=== PATIENT | male | born 1975 | race Caucasian/White ===

== ENCOUNTER 2024-05-28 07:45 | Inpatient (IN) | payer OTHER ==
[~2024-05-28] VITALS: Ht 175.3 cm; Wt 99.8 kg
[2024-05-28] MEDS ORDERED: ZESTRIL2.5 MG PO (07:55)
[2024-05-28] MEDS ORDERED: GRALISE600 MG PO (07:55)
--- NOTE | 2024-05-28 07:57 | NUR ---
PACIENTE ALERTA Y ORIENTADO X3. REFIERE TOS SECA DESDE HACEN VARIOS LÓPEZ Y FIEBRE. SE ESTIMAN VITALES Y SE UBICA.
[2024-05-28] MEDS ORDERED: cloNIDine HCL 0.2 MG TABLET PO ONE ×2 (09:15→18:30)
[2024-05-28] MEDS ORDERED: LEVALBUTEROL HCL 0.63 MG/3 ML SOLUTION IH ONE (09:15)
[2024-05-28] MEDS ORDERED: IPRATROPIUM BROMIDE 0.5 MG/2.5 ML AMPUL.NEB IH ONE (09:15)
--- NOTE | 2024-05-28 09:34 | NUR ---
RN SAMUELS ORIENTA A PTE SOBRE TX MEDICO Y EL MISMO REFIERE ENTENDER. SE RECOLECTAN Y SE ADMINISTRAN MEDICAMENTOS JERMAINE ORDEN MEDICA BAJO MEDIDAS ASEPTICAS. SE COLOCA H/L EN JOHNATHANO RENE.
[2024-05-28 09:57] LABS: HEMATOCRIT 45.8 % (39.0-48.0); HEMOGLOBIN 16.3 g/dL (13-16.00); MEAN CELL VOLUME 91.3 fL (80.0-100.00); MEAN CORPUSCULAR HEMOGLOBIN 32.4 pg (27.00-32.0); MEAN CORPUSCULAR HGB CONC 35.5 g/dl (32.0-36.0); PLATELET COUNT 146 K/uL (150-450); RED BLOOD COUNT 5.02 M/uL (4.00-6.00); RED CELL DISTRIBUTION WIDTH 12.9 % (11.5-14.5)
[2024-05-28 10:13] LABS: ABG PH 7.441 (7.35-7.45); ABG PO2 74.5 mmHg (80-100); ABG pCO2 37.1 mmHg (35-45); BASE EXCESS 0.9 mmol/l; BICARBONATE 24.7 mmol/l (23-25); SaO2 95.4 %; Tco2 25.8 mmol/l
[2024-05-28 10:14] LABS: allen test SATISFACTORY; o2 21 %; puncture site RADIAL RIGHT
[2024-05-28 10:24] LABS: ALBUMIN 3.8 gm/dL (3.4-5.0); BILIRUBIN TOTAL 0.49 mg/dL (0.3-1.2); CALCIUM 9.4 mg/dL (8.5-10.1); CREATININE SERUM 0.94 mg/dL (0.70-1.30); GFR 86.02; GLOBULINA 4.6 G/DL (2.4-3.5); POTASSIUM 4.03 mEq/L (3.5-5.1); TOTAL PROTEIN 8.4 gm/dL (6.4-8.2)
[2024-05-28] MEDS ORDERED: METHYLPREDNISOLONE SOD SUCC 125 MG VIAL IV ONE (12:30)
[2024-05-28] MEDS ORDERED: IPRATROPIUM BROMIDE 0.5 MG/2.5 ML AMPUL.NEB IH SCH (12:30)
[2024-05-28] MEDS ORDERED: LEVALBUTEROL HCL 0.63 MG/3 ML SOLUTION IH SCH (12:30)
[2024-05-28] MEDS ORDERED: LABETALOL HCL 100 MG/20 ML ML IV PUSH ONE (15:15)
[2024-05-28] MEDS ORDERED: LABETALOL HCL 20MG/4ML SYRINGE IV ONE (17:15)
[2024-05-28] MEDS ORDERED: IPRATROPIUM/ALBUTEROL SULFATE 3 ML AMPUL.NEB IH SCH (18:30)
[2024-05-28] MEDS ORDERED: 0.9 % SODIUM CHLORIDE 1,000 ML IV SCH (22:15)
[2024-05-28] MEDS ORDERED: AZITHROMYCIN 500 MG in DEXTROSE 5 % IN WATER 250 ML IV SCH (22:17)
[2024-05-28] MEDS ORDERED: GUAIFEN/DEXTROMETHORPHAN/PE 10 ML BLIST.PACK PO SCH (22:22)
[2024-05-28] MEDS ORDERED: ACETAMINOPHEN 500 MG GEL..CAP PO PRN (22:30)
[2024-05-28] MEDS ORDERED: hydrALAZINE HCL 20 MG VIAL IV PRN (22:45)
[2024-05-29 00:49] VITALS: BP 142/84; O2SAT 98
[2024-05-29] MEDS ORDERED: METHYLPREDNISOLONE SOD SUCC 40 MG VIAL IV SCH (01:00)
[2024-05-29] MEDS ORDERED: IPRATROPIUM/ALBUTEROL SULFATE 3 ML AMPUL.NEB IH SCH (01:00)
[2024-05-29 03:59] VITALS: BP 160/80; O2SAT 98
[2024-05-29 07:11] LABS: INR 1.05; PROTHROMBIN TIME 11.4 SECONDS (9.0-11.5)
[2024-05-29 07:15] LABS: D DIMER 0.63 MG/L; PARTIAL THROMBOPLASTIN TIME 30.2 SECONDS (22.0-34.0)
[2024-05-29 08:50] VITALS: BP 172/86; O2SAT 97
[2024-05-29] MEDS ORDERED: ENOXAPARIN SODIUM 40 MG/0.4 ML SYRINGE SUBCUTANEO SCH (09:00)
[2024-05-29] MEDS ORDERED: IRBESARTAN 150 MG TABLET PO SCH ×2 (09:00→17:00)
[2024-05-29] MEDS ORDERED: FAMOTIDINE/PF 20 MG in 0.9 % SODIUM CHLORIDE 8 ML IV PUSH SCH (09:00)
[2024-05-29] MEDS ORDERED: LEVALBUTEROL HCL 1.25 MG/3 ML SOLUTION IH NR (10:30)
[2024-05-29] MEDS ORDERED: NIFEDIPINE 30 MG TAB.SA.OSM PO NR (13:00)
[2024-05-29] MEDS ORDERED: LEVALBUTEROL HCL 1.25 MG/3 ML SOLUTION IH SCH (13:00)
[2024-05-29] MEDS ORDERED: AZITHROMYCIN 500 MG VIAL IV SCH (17:00)
[2024-05-29] MEDS ORDERED: levoFLOXacin IN DEXTROSE 5 % 150 ML IV SCH (17:00)
[2024-05-29] MEDS ORDERED: MONTELUKAST SODIUM 10 MG TABLET PO SCH (17:00)
[2024-05-29] MEDS ORDERED: IPRATROPIUM BROMIDE 0.5 MG/2.5 ML AMPUL.NEB IH SCH (17:00)
[2024-05-29 17:35] VITALS: O2SAT 94
[2024-05-29 17:53] VITALS: BP 160/90
[2024-05-29 21:33] VITALS: O2SAT 95
[2024-05-30] VITALS (7 sets, daily range): BP systolic 128–142; BP diastolic 78–80; O2SAT 90–97
[2024-05-30] MEDS ORDERED: NIFEDIPINE 30 MG TAB.SA.OSM PO SCH (09:00)
[2024-05-30] MEDS ORDERED: NIFEDIPINE 30 MG TAB.SA.OSM PO STA (09:52)
[2024-05-30] MEDS ORDERED: hydrALAZINE HCL 25 MG TABLET PO NR (13:00)
[2024-05-30 16:18] LABS: PH,URINE 5.5 (5.0-8.0); URINE APPEARANCE Clear; URINE BACTERIA 12.2 uL (0.0-1933); URINE BILIRRUBIN Negative (NEGATIVE); URINE BLOOD Negative; URINE COLOR Yellow; URINE EPITHELIAL CELLS 1.8 uL (0.0-38.8); URINE GLUCOSE Negative (NEGATIVE); URINE KETONE Negative (NEGATIVE); URINE LEUKOCYTE Negative; URINE NITRATE Negative; URINE PROTEIN 30 (NEGATIVE); URINE RBC 4.8 uL (0.0-20.8)
[2024-05-30 16:27] LABS: URINE CAST 0.29 uL (0.0-1.40)
[2024-05-30] MEDS ORDERED: hydrALAZINE HCL 25 MG TABLET PO SCH (21:00)
[2024-05-31 01:40] VITALS: BP 141/90; O2SAT 94
[2024-05-31 02:00] VITALS: O2SAT 93
[2024-05-31 07:47] LABS: ALBUMIN 3.5 gm/dL (3.4-5.0); BILIRUBIN TOTAL 0.39 mg/dL (0.3-1.2); CALCIUM 8.8 mg/dL (8.5-10.1); CREATININE SERUM 0.81 mg/dL (0.70-1.30); GFR 102.14; MAGNESIUM 2.1 mg/dL (1.8-2.4); PHOSPHOROUS 3.8 mg/dL (2.5-4.9); POTASSIUM 3.6 mEq/L (3.5-5.1); TOTAL PROTEIN 7.5 gm/dL (6.4-8.2)
[2024-05-31] MEDS ORDERED: NIFEDIPINE 60 MG TAB.SA.OSM PO SCH (09:00)
[2024-05-31 09:25] VITALS: BP 147/95; O2SAT 96
[2024-05-31 09:27] LABS: HEMATOCRIT 46.2 % (39.0-48.0); HEMOGLOBIN 15.9 g/dL (13-16.00); MEAN CELL VOLUME 92.9 fL (80.0-100.00); MEAN CORPUSCULAR HGB CONC 34.4 g/dl (32.0-36.0); PLATELET COUNT 198 K/uL (150-450); RED BLOOD COUNT 4.98 M/uL (4.00-6.00); RED CELL DISTRIBUTION WIDTH 12.6 % (11.5-14.5)
[2024-05-31 09:44] VITALS: O2SAT 95
[2024-05-31 12:20] VITALS: O2SAT 93
[2024-05-31] MEDS ORDERED: MEDROLPACK PO (14:29)
[2024-05-31] MEDS ORDERED: INTESTINEX680 M1 PO (14:30)
[2024-05-31] MEDS ORDERED: LEVOFLOXACIN750 MG PO (14:30)
[2024-05-31] MEDS ORDERED: AVAPRO150 MG PO (14:31)
[2024-05-31] MEDS ORDERED: XOPENEX CO1.25 MG/0. IH (14:31)
[2024-05-31] MEDS ORDERED: NIFEDIPINE ER60 MG PO (14:32)
[2024-05-31] MEDS ORDERED: MONTELUKAST SOD10 MG PO (14:32)
[2024-05-31] MEDS ORDERED: HYDRALAZINE HCL25 MG PO (14:32)
[2024-05-31] MEDS ORDERED: PROTONIX20 MG PO (14:32)
[2024-05-31] MEDS ORDERED: SYMBICORT 16010.2 GM IH (14:34)
[2024-05-31] MEDS ORDERED: METHYLPREDNISOLONE SOD SUCC 40 MG VIAL IV SCH (21:00)
== END 2024-05-31 15:04 | disposition home or self-care (01) | DRG 192 ==
LOC: ER 07:45 → MEDI 22:25
PROVIDERS: Emergency Medicine; General Practice; ADMIT Internal Medicine; ATTEND Internal Medicine
PROC: BB24ZZZ Computerized Tomography (CT Scan) of Bilateral Lungs (ICD-10-PCS; principal; 2024-05-28)
PROC: B246ZZZ Ultrasonography of Right and Left Heart (ICD-10-PCS; 2024-05-28)
PROC: 3E0F7GC Introduction of Other Therapeutic Substance into Respiratory Tract, Via Natural or Artificial Opening (ICD-10-PCS; 2024-05-29)
PROC: 4A12X4Z Monitoring of Cardiac Electrical Activity, External Approach (ICD-10-PCS; 2024-05-29)
DX: J44.1 Chronic obstructive pulmonary disease with (acute) exacerbation (principal); J22 Unspecified acute lower respiratory infection; I16.0 Hypertensive urgency; Z72.0 Tobacco use; R09.02 Hypoxemia; I10 Essential (primary) hypertension

== ENCOUNTER 2025-06-18 14:36 | Inpatient (IN) | payer OTHER ==
[~2025-06-18] VITALS: Ht 175.3 cm; Wt 86.2 kg
[~2025-06-18 14:36] MED LIST: AVAPRO150 MG PO; GRALISE600 MG PO; HYDRALAZINE HCL25 MG PO; INTESTINEX680 M1 PO; LEVOFLOXACIN750 MG PO; MEDROLPACK PO; MONTELUKAST SOD10 MG PO; NIFEDIPINE ER60 MG PO; PROTONIX20 MG PO; SYMBICORT 16010.2 GM IH; XOPENEX CO1.25 MG/0. IH; ZESTRIL2.5 MG PO
[2025-06-18] MEDS ORDERED: COZAAR25 MG PO (15:42)
[2025-06-18] MEDS ORDERED: KEPPRA500 MG PO (15:43)
[2025-06-18] MEDS ORDERED: LORazepam 2 MG/ML VIAL IV STA (15:54)
[2025-06-18] MEDS ORDERED: 0.9 % SODIUM CHLORIDE 1,000 ML IV STA ×2 (15:55→21:41)
[2025-06-18 16:44] LABS: BASO % 1.9 % (0.1-1.2); EOS # 0.01 (0.04-0.54); EOS % 0.3 % (0.7-7.0); LYMPH # 0.32 (1.18-3.74); LYMPH % 9.9 % (19.3-53.1); MEAN PLATELET VOLUME 9.30 fl (9.4-12.4); MONO # 0.72 (0.24-0.82); NEUT # 2.13 (1.56-6.13); NEUT % 65.7 % (34.0-71.1); RED CELL DISTRIBUTION WIDTH 11.4 % (11.6-14.4)
[2025-06-18 17:01] LABS: INR 1.17
[2025-06-18 17:14] LABS: MONO % 22.2 % (4.7-12.5)
[2025-06-18 17:15] LABS: BASOPHIL MAN 2.0 %; ERYTHROCYTE SEDIMENTATION RATE 19 mm/hr (0-15); LYMPHOCYTE MAN 13.0 %; MONOCYTE MAN 16.0 %; NEUTROPHILS MAN 69.0 %
[2025-06-18 17:19] LABS: COVID-19 AG NEGATIVE (NEGATIVE)
[2025-06-18 17:21] LABS: ALT/SGPT 106 U/L (12-78); AST/SGOT 142 U/L (15-37); BILIRUBIN TOTAL 1.80 mg/dL (0.3-1.2); BUN CREA RATIO 10 (7.0-25.0); CREATININE SERUM 0.70 mg/dL (0.70-1.30); GFR 120.36; GLOBULINA 4.5 G/DL (2.4-3.5); GLUCOSE FASTING 123 mg/dL (65-100); OSMOLALITY SERUM 277 MOSM/KG (275-295)
[2025-06-18 18:08] LABS: URINE APPEARANCE Clear; URINE BILIRRUBIN Negative (NEGATIVE); URINE BLOOD Negative; URINE COLOR Yellow; URINE GLUCOSE Negative (NEGATIVE); URINE KETONE Trace (NEGATIVE); URINE LEUKOCYTE Trace; URINE NITRATE Negative; URINE PROTEIN 30 (NEGATIVE); URINE UROBILINOGEN 1.0 E.U./dl
[2025-06-18 18:17] LABS: URINE BACTERIA 16.0 uL (0.0-1933); URINE EPITHELIAL CELLS 1.8 uL (0.0-38.8); URINE RBC 11.0 uL (0.0-20.8); URINE WBC 2.2 uL (0.0-23.2)
[2025-06-18 18:25] LABS: URINE CAST 0.14 uL (0.0-1.40)
[2025-06-18] MEDS ORDERED: ONDANSETRON HCL 2 MG/ML VIAL IV STA (21:41)
[2025-06-18] MEDS ORDERED: THIAMINE HCL 100 MG/ML 2 ML VIAL IV SCH (21:41)
[2025-06-18] MEDS ORDERED: GABAPENTIN 300 MG CAPSULE PO SCH (21:42)
[2025-06-19] MEDS ORDERED: CLONIDINE HCL 0.1 MG TABLET PO SCH (09:00)
[2025-06-19] MEDS ORDERED: LevETIRAcetam 500 MG TAB. PO SCH (09:46)
[2025-06-19] MEDS ORDERED: PANTOPRAZOLE SODIUM 40 MG/VIAL VIAL IV SCH (16:29)
[2025-06-19] MEDS ORDERED: ACETAMINOPHEN 500 MG GEL..CAP PO PRN (16:30)
[2025-06-19] MEDS ORDERED: ONDANSETRON HCL 4 MG in 0.9 % SODIUM CHLORIDE 50 ML IV PRN (16:30)
[2025-06-19] MEDS ORDERED: CHLORDIAZEPOXIDE HCL 25 MG CAPSULE PO SCH (17:00)
[2025-06-19] MEDS ORDERED: 0.9 % SODIUM CHLORIDE 1,000 ML IV SCH (17:45)
[2025-06-19] MEDS ORDERED: LOSARTAN/HYDROCHLOROTHIAZIDE 1 UDTAB TABLET PO SCH (17:47)
[2025-06-19 18:41] VITALS: BP 108/72
[2025-06-19 19:57] LABS: INR 1.16
[2025-06-19 20:18] LABS: ERYTHROCYTE SEDIMENTATION RATE 40 mm/hr (0-15); MANUAL PLATELET COUNT 142
[2025-06-19] MEDS ORDERED: POTASSIUM CHLORIDE 20MEQ/100ML H2O PB IV ONE (22:30)
[2025-06-20 01:14] VITALS: BP 131/76; O2SAT 97
[2025-06-20 08:54] LABS: CHOL HDL RATIO 2.9 (0-5.0); HDL 70.0 mg/dl (40-60); LDL 111.0 mg/dl (0-130); VLDL 25.0 (0-39)
[2025-06-20 08:57] LABS: TSH 5.69 uIU/mL (0.358-3.74)
[2025-06-20] MEDS ORDERED: MAGNESIUM SULFATE IN WATER 50 ML IV NR (09:15)
[2025-06-20 10:07] VITALS: BP 127/76; O2SAT 99
[2025-06-20 20:00] VITALS: BP 127/84
[2025-06-21 02:58] VITALS: BP 146/84; O2SAT 98
[2025-06-21 08:00] VITALS: BP 134/90
[2025-06-21] MEDS ORDERED: MAGNESIUM SULFATE IN WATER 50 ML IV NR (11:00)
[2025-06-21] MEDS ORDERED: POTASSIUM BICARBONATE/CIT AC 25 MEQ TABLET.EFF PO SCH (13:00)
[2025-06-21 19:42] VITALS: BP 139/93; O2SAT 100
[2025-06-22 02:14] VITALS: BP 144/78; O2SAT 99
[2025-06-22 06:35] LABS: BUN CREA RATIO 16.0 (7.0-25.0); CREATININE SERUM 0.82 mg/dL (0.70-1.30); GFR 100.28; GLUCOSE FASTING 94.0 mg/dL (65-100); OSMOLALITY SERUM 281.0 MOSM/KG (275-295)
[2025-06-22 08:51] VITALS: BP 134/75; O2SAT 96
[2025-06-22] MEDS ORDERED: PANTOPRAZOLE SODIUM 40 MG TABLET.DR PO SCH (09:00)
== END 2025-06-22 22:49 | disposition home or self-care (01) | DRG 101 ==
LOC: ER 14:37 → MEDJ 06-19 19:00
PROVIDERS: General Practice; Physician Assistant Medical; ADMIT Internal Medicine; ATTEND Internal Medicine
PROC: BW28ZZZ Computerized Tomography (CT Scan) of Head (ICD-10-PCS; principal; 2025-06-18)
PROC: BW21YZZ Computerized Tomography (CT Scan) of Abdomen and Pelvis using Other Contrast (ICD-10-PCS; 2025-06-18)
PROC: BW40ZZZ Ultrasonography of Abdomen (ICD-10-PCS; 2025-06-19)
PROC: B030ZZZ Magnetic Resonance Imaging (MRI) of Brain (ICD-10-PCS; 2025-06-19)
DX: R56.9 Unspecified convulsions (principal); F10.939 Alcohol use, unspecified with withdrawal, unspecified
CPT/HCPCS: 70551